=== PATIENT | male | born 1995 | race Caucasian/White ===

== ENCOUNTER 2022-06-15 21:36 | Emergency (ER) | payer BC ==
[~2022-06-15] VITALS: Ht 177.8 cm; Wt 81.6 kg
[2022-06-15 21:40] VITALS: BP 136/83
--- NOTE | 2022-06-15 21:42 | NUR ---
TO CHAIR A AMBULATORY
[2022-06-15] MEDS ORDERED: FAMO-90 PO (23:08)
[2022-06-15] MEDS ORDERED: DIPH25TA53 PO (23:08)
[2022-06-15] MEDS ORDERED: EPIN1KIT31 IM (23:11)
[2022-06-15 23:18] VITALS: BP 130/85
--- NOTE | 2022-06-15 23:18 | NUR ---
DIFF OF BREATHING S/P EATING DINNER WITH EL AND BEEF, 20 MINUTES, HE WAS GIVEN BENADRYL
--- NOTE | 2022-06-15 23:20 | NUR ---
Patient discharged with v/s stable by ermd. Written and verbal after care instructions given and explained. Patient alert, oriented and verbalized understanding of instructions. Ambulatory with steady gait. All questions addressed prior to discharge. ID band removed. Patient advised to follow up with PMD. Rx of epipne 0.3mg IM, epcid 20mg PO, benadryl 25mg PO given. Patient educated on indication of medication including possible reaction and side effects. Opportunity to ask questions provided and answered.
== END 2022-06-15 23:20 | disposition home or self-care (01) ==
LOC: MED 21:36
DX: T78.40XA Allergy, unspecified, initial encounter (principal); R06.02 Shortness of breath; F41.9 Anxiety disorder, unspecified; Z79.899 Other long term (current) drug therapy; X58.XXXA Exposure to other specified factors, initial encounter
CPT/HCPCS: 71045; 99283